=== PATIENT | female | born 1960 | race Caucasian/White ===

== ENCOUNTER → 2017-04-02 | Outpatient (CLI) | payer OTHER | LOC: FIMAGING 08:08 | PROVIDERS: ATTEND Obstetrics & Gynecology | DX: Z12.31 Encounter for screening mammogram for malignant neoplasm of breast (principal) | CPT/HCPCS: G0202 ==

== ENCOUNTER 2018-03-20 10:26 | Emergency (ER) | payer OTHER ==
[2018-03-20] MEDS ORDERED: NS 1,000 ML IV ONE (10:27)
[2018-03-20] MEDS ORDERED: fentaNYL 100 MCG/2 ML INJ IVP ONE ×2 (10:27→14:42)
--- NOTE | 2018-03-20 10:53 | EDPHY ---
HPI/HX/ROS/PE/MDM Narrative: CHIEF COMPLAINT: Vaginal bleeding HPI: The patient is a postmenopausal 57 y/o female with a history of uterine fibroids arriving with her at the referral of her OBGYN for worsening vaginal bleeding over the last week with acute onset pelvic pain last night around 20:00, about 15 hours ago. The bleeding has progressively worsened and is intermittently light and intermittently heavy with large clots. She describes the pain as constant, sharp at times, and crampy. She has associated vomiting and diarrhea and is currently unable to tolerate food or fluids by mouth. No associated fever. She saw her OBGYN this morning for this and had an endometrial biopsy performed. Due to her severe pain and at times heavy vaginal bleeding, her OBGYN referred her to the ED for further evaluation. Patient's mother had uterine cancer. REVIEW OF SYSTEMS: Aside from elements discussed in the HPI, a comprehensive 10-point review of systems was reviewed and is negative. PMH: Hyperthyroidism, obesity, dysfunctional uterine bleeding, c-sections, meniscus surgery, uterine fibroids SOCIAL HISTORY: at the bedside. Former smoker. Alcohol use. OBGYN: Dr. Karen Roman PHYSICAL EXAM: General:Patient is alert, appears uncomfortable. ENT:Eyes are normal to inspection. ENT inspection normal. Neck: Normal inspection. Full range of motion. Respiratory:No respiratory distress. Breath sounds normal bilaterally. Cardiovascular: Regular rate and rhythm. Strong peripheral pulses. Normal cap refill. Abdomen:The abdomen has suprapubic tenderness to palpation. There are no peritoneal signs. Back: Normal to inspection. No tenderness to palpation. Skin: Normal color. No rash. Warm and dry. Extremities: Normal appearance. Full range of motion. Neuro: Oriented x3. Normal motor function. Normal sensory function. ED Course: This is a post-menopausal 57 y/o female with a history of uterine fibroids who presents with a 1-week history of intermittent but worsening vaginal bleeding with acute onset suprapubic abdominal pain last night that is severe today. She has associated nausea, vomiting, and diarrhea. She appears uncomfortable lying on her side and has suprapubic tenderness on exam. Plan for IV, labs, symptom management. 100mcg IV Fentanyl and 1L IV NS ordered. Labs unremarkable. Reassessed patient. She is much more comfortable after medication administration. Abdominal CT: blood clots in uterus, otherwise negative. Dr. Becerra, radiologist , recommends US for further evaluation. Abdominal US: 10x5cm fibroid 1437: Consulted with Dr. Roman, patient's OBGYN. She recommends discharge home on TXA and outpatient follow up with her office. Reassessed patient and discussed recommendation for discharge. She will receive script for Paige and TXA and referral back to Dr. Roman. She is comfortable with this plan. Return precautions discussed. - Data Points Imaging Results: Imaging Impressions Abdomen CT 03/20/18 12:12 Impression: 1. Prominent uterine fibroid with endometrial blood products. Delineation of the fibroid from the uterine body is difficult. Recommend correlation with pelvic ultrasound. 2. Diverticulosis without evidence of diverticulitis. 3. Hepatic steatosis. Findings were communicated by telephone with Dr. Nick Pritchett MD at 2017 13:18 Pelvic/Renal Ultrasound 03/20/18 13:11 Impression: 1. 9.8 cm submucosal leiomyoma in the right myometrium displacing the endometrium to the left. Consider consultation with Interventional Radiology for uterine fibroid embolization. 2. Minimally complex and simple cyst right ovary. Results called and discussed with Nick Pritchett MD on 03/20/2018 at 1431 hours. Imaging: I viewed and interpreted images myself Laboratory Results: Laboratory Results 03/20/18 11:00 03/20/18 11:00 03/20/18 03/20/18 03/20/18 11:00 11:00 11:00 WBC RBC Hgb Hct MCV MCH MCHC RDW Plt Count MPV Neut % (Auto) Lymph % (Auto) Hill % (Auto) Eos % (Auto) Baso % (Auto) Nucleat RBC Rel Count Absolute Neuts (auto) Absolute Lymphs (auto) Absolute Monos (auto) Absolute Eos (auto) Absolute Basos (auto) Absolute Nucleated RBC Immature Gran % Immature Gran # PT 12.7 SEC SEC (12.0-15.0) INR 0.93 (0.83-1.16) APTT 23.5 SEC SEC (23.0-38.0) Sodium 145 mEq/L mEq/L (135-145) Potassium 3.9 mEq/L mEq/L (3.3-5.0) Chloride 107 mEq/L mEq/L (97-110) Carbon Dioxide 25 mEq/l mEq/l (22-31) Anion Gap 13 mEq/L mEq/L (8-16) BUN 15 mg/dL mg/dL (7-23) Creatinine 0.7 mg/dL mg/dL (0.6-1.0) Estimated GFR > 60 Glucose 119 mg/dL H mg/dL (70-100) Calcium 9.5 mg/dL mg/dL (8.5-10.4) Patient ABO/Rh O POSITIVE Antibody Screen NEGATIVE 03/20/18 11:00 WBC 12.74 10^3/uL H 10^3/uL (3.80-9.50) RBC 4.95 10^6/uL 10^6/uL (4.18-5.33) Hgb 14.8 g/dL g/dL (12.6-16.3) Hct 44.3 % % (38.0-47.0) MCV 89.5 fL fL (81.5-99.8) MCH 29.9 pg pg (27.9-34.1) MCHC 33.4 g/dL g/dL (32.4-36.7) RDW 12.9 % % (11.5-15.2) Plt Count 208 10^3/uL 10^3/uL (150-400) MPV 12.1 fL H fL (8.7-11.7) Neut % (Auto) 88.1 % H % (39.3-74.2) Lymph % (Auto) 8.3 % L % (15.0-45.0) Hill % (Auto) 3.1 % L % (4.5-13.0) Eos % (Auto) 0.1 % L % (0.6-7.6) Baso % (Auto) 0.2 % L % (0.3-1.7) Nucleat RBC Rel Count 0.0 % % (0.0-0.2) Absolute Neuts (auto) 11.21 10^3/uL H 10^3/uL (1.70-6.50) Absolute Lymphs (auto) 1.06 10^3/uL 10^3/uL (1.00-3.00) Absolute Monos (auto) 0.40 10^3/uL 10^3/uL (0.30-0.80) Absolute Eos (auto) 0.01 10^3/uL L 10^3/uL (0.03-0.40) Absolute Basos (auto) 0.03 10^3/uL 10^3/uL (0.02-0.10) Absolute Nucleated RBC 0.00 10^3/uL 10^3/uL (0-0.01) Immature Gran % 0.2 % % (0.0-1.1) Immature Gran # 0.03 10^3/uL 10^3/uL (0.00-0.10) PT INR APTT Sodium Potassium Chloride Carbon Dioxide Anion Gap BUN Creatinine Estimated GFR Glucose Calcium Patient ABO/Rh Antibody Screen Medications Given: Discontinued Medications Fentanyl (Sublimaze) 100 mcg IVP EDNOW ONE Stop: 03/20/18 10:28 Last Admin: 03/20/18 10:57 Dose: 100 mcg Fentanyl (Sublimaze) 50 mcg IVP EDNOW ONE Stop: 03/20/18 14:43 Last Admin: 03/20/18 15:00 Dose: 50 mcg Sodium Chloride (Ns) 1,000 mls @ 0 mls/hr IV EDNOW ONE; Wide Open PRN Reason: Protocol Stop: 03/20/18 10:28 Last Admin: 03/20/18 10:57 Dose: 1,000 mls Ketorolac Tromethamine (Toradol) 30 mg IVP EDNOW ONE Stop: 03/20/18 14:43 Last Admin: 03/20/18 15:00 Dose: 30 mg General Time Seen by Provider: 03/20/18 10:26 Initial Vital Signs: Initial Vital Signs Temperature (C) 37.5 C 03/20/18 10:41 Heart Rate 65 03/20/18 10:41 Respiratory Rate 16 03/20/18 10:41 Blood Pressure 140/82 H 03/20/18 10:41 O2 Sat (%) 95 03/20/18 10:41 O2 Delivery Mode Nasal Cannula O2 (L/minute) 2 Allergies/Adverse Reactions: No Known Allergies Allergy (Verified 04/16/12 21:26) Home Medications: Medication Instructions Recorded CHOLECALCIFEROL [Vitamin D] 0 unit PO 04/16/12 Tranexamic Acid 1,300 mg PO TID #30 tablet 03/20/18 oxyCODONE/APAP 5/325 [Percocet 1 - 2 tab PO Q4H PRN #20 tab 03/20/18 5/325 (*)] Departure - Departure Disposition: Home, Routine, Self-Care Clinical Impression: Dysfunctional uterine bleeding Condition: Good Instructions: Dysfunctional Uterine Bleeding (ED) Additional Instructions: 1. Take TXA as prescribed. This will treat the bleeding. 2. Use Paige as prescribed as needed for severe pain. This medication can make you drowsy and constipated. Do not use prior to driving. 3. Follow up with Dr. Roman in the next 2-3 days. 4. Return to the ED for worsening of condition. Referrals: Vira Franco MD [Primary Care Provider] - As per Instructions Prescriptions: oxyCODONE/APAP 5/325 [Percocet 5/325 (*)] 1 - 2 tab PO Q4H PRN #20 tab PRN Reason: Pain, Severe Tranexamic Acid 1,300 mg PO TID #30 tablet Report Scribed for: Nick Pritchett Report Scribed by: Sabrina Caruso Date of Report: 03/20/18 Time of Report: 10:53 Physician Review and Approval Statement: Portions of this note were transcribed by an ED scribe. I personally performed the history, physical exam, and medical decision making; and confirm the accuracy of the information in the transcribed note.
[2018-03-20 11:16] LABS: PLATELET COUNT 208 10^3/uL (150-400)
[2018-03-20 11:25] LABS: INR 0.93 (0.83-1.16); PROTIME(PATIENT) 12.7 SEC (12.0-15.0)
[2018-03-20] MEDS ORDERED: IOPAMIDOL (ISOVUE-300) 100 ML BTL ONE (12:20)
[2018-03-20] MEDS ORDERED: KETOROLAC 30 MG/1 ML SDV IVP ONE (14:42)
[2018-03-20 15:41] VITALS: BP 107/71
== END 2018-03-20 15:40 | disposition home or self-care (01) ==
DX: N93.8 Other specified abnormal uterine and vaginal bleeding (principal); E86.9 Volume depletion, unspecified; Z87.891 Personal history of nicotine dependence
CPT/HCPCS: 96374; J1885; J3010; Q9967

== ENCOUNTER → 2018-05-29 | Outpatient (CLI) | payer OTHER | LOC: FIMAGING 08:50 | PROVIDERS: ATTEND Internal Medicine | DX: Z12.31 Encounter for screening mammogram for malignant neoplasm of breast (principal) ==